=== PATIENT | female | born 1975 | race African-American/Black ===

== ENCOUNTER 2018-06-18 05:47 | Inpatient (IN) | payer BC ==
--- NOTE | 2018-06-17 22:39 | HP ---
DATE OF ADMISSION: 06/18/2018 REASON FOR ADMISSION: Velamentous cord insertion with unexplained elevated MSAFP at 37 weeks prior C -section x2, advanced maternal age. SCHEDULED PROCEDURE: Repeat section. HISTORY OF PRESENT ILLNESS: Ms. Clark is a 42-year-old 5, para 2, AB 2 at 37 weeks on 2017. She has been followed in early for a velamentous cord insertion as well as an abnorm al MSAFP with normal NIPT concerns are for elevated risk of unexplained loss at term associated with both velamentous insertion and MSAFP elevation and under recommendation of [facility], will proceed with at 37 weeks. 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 The patient's blood type is A positive. Her group B strep is negative. PAST MEDICAL HISTORY: Hypertension in . PAST SURGICAL HISTORY: , submandibular mass removal and D&C x2. SOCIAL HISTORY: Denies tobacco, alcohol, or IV drug abuse. 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 MEDICATIONS: vitamins. ALLERGIES: None. PHYSICAL EXAMINATION: GENERAL: Black female in no acute distress. VITAL SIGNS: Blood pressure 112/74, 142 pounds. HEENT: Within normal limits. LUNGS: Clear to auscultation bilaterally. HEART: Regular rhythm. BREASTS: Without mass bilaterally. ABDOMEN: Soft, nontender, no rebound or guarding. PELVIC: Vulva without lesions. Vagina without discharge. Cervix is closed, long, and high. EXTREMITIES: Without clubbing, cyanosis, or edema. IMPRESSION: Advanced maternal age, previous section x2, unexplained MSAFP elevation with ve lamentous cord insertion. PLAN: Repeat low transverse section at [facility] on 06/18/2018 with appropriate a ntibiotic and DVT prophylaxis.
[2018-06-18 06:37] VITALS: BMI 26.8
[2018-06-18] MEDS ORDERED: Lactated Ringer's 1,000 ML IV SCH ×3 (07:05→13:15)
[2018-06-18] MEDS ORDERED: Promethazine HCl 25 MG/ML VIAL IM PRN ×4 (07:05→13:49)
[2018-06-18] MEDS ORDERED: Bicitra 30 ML UDCUP PO SCH (07:05)
[2018-06-18] MEDS ORDERED: CEFAZOLIN/Water 2 GM/20 ML SYRINGE SLOW IVP SCH (07:05)
[2018-06-18] MEDS ORDERED: Ondansetron HCl/PF 4 MG/2 ML Vial IVP PRN ×5 (07:05→13:49)
[2018-06-18 07:12] LABS: Hemoglobin 13.5 g/dL (12.0-16.0); Mean Corpuscular HGB CONC 35.4 g/dL (32.0-36.0); Mean Corpuscular Hemoglobin 32.7 pg (27.0-31.0); Mean Corpuscular Volume 92.4 fL (78.0-98.0); Mean Platelet Volume 8.6 fL (7.4-10.4); Platelet Count 173 thou/uL (130-400); RBC Distribution Width 13.6 % (11.5-14.5); Red Blood Cell (RBC) Count 4.14 mill/uL (4.20-5.40); White Blood Cell (WBC) Count 4.9 thou/uL (4.8-10.8)
[2018-06-18 07:46] LABS: Hep B Surf Ag Non-Reactive S/CO (NonReactive); Syphilis Antibody Nonreactive (Nonreactive); Syphilis Antibody Index 0.06 S/CO (<1.00 Non-Reactive)
[2018-06-18] MEDS ORDERED: Oxytocin 10 UNITS/ML VIAL ONE (08:46)
[2018-06-18] MEDS ORDERED: Lidocaine 1% PF 5 ML VIAL ONE (08:46)
[2018-06-18] MEDS ORDERED: Morphine PF 1 MG/ML SYR ONE (08:46)
[2018-06-18] MEDS ORDERED: Bupivacaine 0.75% W/DEXTROSE 8.25% 2 ML AMP ONE (08:46)
[2018-06-18] MEDS ORDERED: Ondansetron HCl/PF 4 MG/2 ML Vial ONE ×2 (08:47→12:19)
[2018-06-18] MEDS ORDERED: Promethazine HCl 25 MG SUPP PR PRN ×2 (08:55→13:49)
[2018-06-18] MEDS ORDERED: Naloxone HCl 0.4 mg/ml Vial IV PRN ×4 (08:55→13:49)
[2018-06-18] MEDS ORDERED: Meperidine HCl/PF 25 MG/ML VIAL SLOW IVP PRN (08:55)
[2018-06-18] MEDS ORDERED: diphenhydrAMINE 50 MG/ML VIAL IVP PRN ×2 (08:55→13:49)
[2018-06-18] MEDS ORDERED: Naloxone HCl 0.4 mg/ml Vial IVP PRN ×2 (08:55)
[2018-06-18] MEDS ORDERED: HYDROmorphone 2 MG/ML VIAL SLOW IVP PRN (08:55)
[2018-06-18] MEDS ORDERED: Eucerin (Mineral Oil/Petrolatum,White) 30 gm Jar TOP PRN (08:55)
[2018-06-18] MEDS ORDERED: Ketorolac Tromethamine 30 MG/ML VIAL IVP PRN (08:55)
[2018-06-18] MEDS ORDERED: Communication Order-Pharmacy FS SCH (09:00)
[2018-06-18] MEDS ORDERED: Ketorolac Tromethamine 30 MG/ML VIAL IVP SCH (09:00)
[2018-06-18] MEDS ORDERED: PHENYLEPHRINE-NS 100 MCG/ML 10 ML SYRINGE ONE ×2 (09:09→12:19)
--- NOTE | 2018-06-18 09:48 | PDOC.OPDEL ---
OB Operative/Delivery Note Delivery Dr/Surgeon: Bruno Assist: Peter Pre-Delivery Diagnosis: scheduled section ( velamentous cord and elevated msafp at 37 wk) Procedure/Post Delivery Dx: repeat low transverse CS Weeks gestation: 37 Anesthesia: spinal - Findings A Sex: male Weight: 0 oz - 1 min: 7 - 5 min: 9 - Additional Findings/Plan Placenta delivered: spontaneous findings: low transverse hysterotomy without extension Estimated blood loss: 0 - qbl pending but seemed wnl Post delivery plan: routine recovery
--- NOTE | 2018-06-18 10:14 | OP ---
DATE OF PROCEDURE: 06/18/2018 PREOPERATIVE DIAGNOSES: 1. A 37 weeks gestation with velamentous cord insertion. 2. Previous section x2 and unexplained elevated MSAFP with Maternal Medicine recommen dation for delivery at 37-38 weeks' gestation. POSTOPERATIVE DIAGNOSES: 1. A 37 weeks gestation with velamentous cord insertion. 2. Previous section x2 and unexplained elevated MSAFP with Maternal Medicine recommen dation for delivery at 37-38 weeks' gestation. PROCEDURE: Repeat low transverse section without extension. SURGEON: Maynor Carr M.D. MOTOR POOL CLERK: Elisabet Green M.D. ANESTHESIA: Reed Lott, subarachnoid block. ESTIMATED BLOOD LOSS: Quantitative blood loss 340 mL. MEDICATIONS: Two grams Ancef preincision. DVT PROPHYLAXIS: SCDs. OPERATIVE FINDINGS: 1. Vigorous male , clear fluid, cephalic presentation 7 and 9 Apgars, weight pending to [facility]. 2. Normal appearing uterus, tubes and ovaries bilaterally. 3. Hemostasis with clear urine. 4. Counts correct at the end of the procedure. DISPOSITION: To the recovery room in good condition. DESCRIPTION OF OPERATIVE PROCEDURE: After obtaining proper consent, the patient was taken to the ope rating room where subarachnoid block was achieved without difficulty. The patient was prepped and dr yu in the usual manner. She had a previous vertical midline skin incision which the scar was excis ed and then carried down, the fascia was incised sharply superiorly and inferiorly. Peritoneum enter ed bluntly, taking care to avoid trauma to underlying viscera. Que O retractor placed inside. Ad hesions of the peritoneum to the lower uterine segment dissected off. The bladder noted to be well b elow the level of the hysterotomy. A low transverse hysterotomy made and extended superior and later ally with finger fractionization. Clear fluid noted. 's head elevated to the hysterotomy, del ivered, suctioned, cord clamped and cut and handed off to team in attendance. Usual cord bl ood sample obtained. Placenta delivered manually and sent for pathologic analysis. Gross appearance was consistent with a velamentous cord as diagnosed on ultrasound. Hysterotomy was inspected and no yesica be without extension, closed in a running locking #1 Monocryl suture. Good hemostasis noted. Al exis 0 retractor was removed. Rectus was inspected and noted to be dry. Fascia reapproximated using running continuous 0 PDS suture. Subcutaneous tissue irrigated and rendered hemostatic with Bovie c autery, reapproximated the skin using skin laura. Pressure dressing applied. The patient was take n to recovery room in good condition.
[2018-06-18] MEDS ORDERED: Ketorolac Tromethamine 30 MG/ML VIAL ONE (11:08)
[2018-06-18] MEDS ORDERED: NS / Oxytocin 40 units/1000ml 1,000 ML ONE (11:13)
[2018-06-18] MEDS ORDERED: NS / Oxytocin 40 units/1000ml 1,000 ML IV SCH (13:15)
[2018-06-18] MEDS ORDERED: Zolpidem Tartrate 5 MG TAB PO PRN (13:15)
[2018-06-18] MEDS ORDERED: Lanolin Ointment 7 GM TUBE TOP PRN (13:15)
[2018-06-18] MEDS ORDERED: Adacel (T-DAP) 0.5 ML VIAL IM ONE (13:15)
[2018-06-18] MEDS ORDERED: HYDROcodone/Acetaminophen 5/325 mg Tablet PO PRN ×2 (13:15)
[2018-06-18] MEDS ORDERED: Varicella virus, LIVE 0.5 ML VIAL SC ONE (13:15)
[2018-06-18] MEDS ORDERED: diphenhydrAMINE 25 MG CAP PO PRN (13:15)
[2018-06-18] MEDS ORDERED: Simethicone Chewable 80 MG TAB PO PRN (13:15)
[2018-06-18] MEDS ORDERED: Meperidine HCl/PF 25 MG/ML VIAL IM PRN (13:15)
[2018-06-18] MEDS ORDERED: Measles/Mumps/Rubella 10 MCG/0.5 ML VIAL SC ONE (13:15)
[2018-06-18] MEDS ORDERED: Hydrocerin (Eucerin) Cream 120 gm Jar TOP PRN (13:49)
[2018-06-18] MEDS ORDERED: NO PO,IM,IV OR SC NARCOTICS FOR 12HR EXCEPT BY ANESTHESIA PO SCH (14:00)
[2018-06-18] MEDS: Ibuprofen 800 MG TAB PO SCH (16:54)
[2018-06-18] MEDS: Ketorolac Tromethamine 30 MG/ML VIAL IVP PRN ×2 (17:40→19:32)
[2018-06-19] MEDS: Ibuprofen 800 MG TAB PO SCH ×4 (01:11→21:44)
[2018-06-19] MEDS: Ferrous Sulfate 325 MG TAB PO SCH ×3 (01:13→21:48)
[2018-06-19] MEDS ORDERED: Zolpidem Tartrate 5 MG TAB PO PRN (02:00)
[2018-06-19] MEDS ORDERED: Meperidine HCl/PF 25 MG/ML VIAL IM PRN (02:00)
[2018-06-19] MEDS ORDERED: HYDROcodone/Acetaminophen 5/325 mg Tablet PO PRN ×2 (02:00)
[2018-06-19] MEDS: Docusate Calcium (SURFAK) 240 MG CAP PO SCH ×3 (05:30→21:44)
[2018-06-19] MEDS: Ketorolac Tromethamine 30 MG/ML VIAL IVP PRN (05:34)
[2018-06-19 05:48] LABS: Hemoglobin 12.7 g/dL (12.0-16.0); Mean Corpuscular HGB CONC 34.5 g/dL (32.0-36.0); Mean Corpuscular Hemoglobin 32.5 pg (27.0-31.0); Mean Corpuscular Volume 94.2 fL (78.0-98.0); Mean Platelet Volume 8.8 fL (7.4-10.4); Platelet Count 144 thou/uL (130-400); RBC Distribution Width 13.5 % (11.5-14.5); Red Blood Cell (RBC) Count 3.92 mill/uL (4.20-5.40); White Blood Cell (WBC) Count 9.4 thou/uL (4.8-10.8)
--- NOTE | 2018-06-19 08:50 | PDOC.PP ---
Post Progress Note Post Day #: 1 PO intake tolerated: yes Flatus: yes Ambulation: yes Vital Signs (12 hours) Temp Pulse Resp BP 06/19/18 08:04 97.6 F 67 20 119/66 06/19/18 04:00 98.6 F 65 18 06/19/18 00:00 98.6 F 65 18 116/72 Weight Weight 142 lb - Physical Examination General: NAD Cardiovascular: no m/r/g, RRR Respiratory: clear to auscultation bilaterally, non-labored breathing Abdominal: + bowel sounds, lochia, no distention, appropriately TTP Skin: CS incision dry & intact, no rash Psychiatric: A&Ox3, normal affect Result Diagrams: 06/19/18 05:03 Additional Labs: Post Labs Blood Type A POSITIVE 06/18/18 06:30 Hep Bs Antigen Non-Reactive S/CO (NonReactive) 06/18/18 06:30 - Assessment/Plan Post op day 1-doing well. routine care.
[2018-06-19] MEDS: Prenatal Vitamin 1 TAB PO SCH (09:33)
[2018-06-20] MEDS: Ibuprofen 800 MG TAB PO SCH ×2 (05:23→13:59)
[2018-06-20] MEDS: Docusate Calcium (SURFAK) 240 MG CAP PO SCH (09:14)
[2018-06-20] MEDS: Prenatal Vitamin 1 TAB PO SCH (09:14)
[2018-06-20] MEDS: Ferrous Sulfate 325 MG TAB PO SCH (09:15)
--- NOTE | 2018-06-20 09:54 | PDOC.PP ---
Post Progress Note Post Day #: 2-3 PO intake tolerated: yes Flatus: yes Ambulation: yes Vital Signs (12 hours) Temp Pulse Resp BP 06/20/18 08:12 97.9 F 84 20 120/65 06/20/18 04:48 98.7 F 81 20 06/19/18 23:33 98.7 F 81 20 Weight Weight 142 lb - Physical Examination General: NAD Cardiovascular: no m/r/g, RRR Respiratory: clear to auscultation bilaterally, non-labored breathing Abdominal: + bowel sounds, lochia Extremities: negative homans (B) Skin: CS incision dry & intact, no rash Neurological: no gross focal deficits Psychiatric: A&Ox3, normal affect Result Diagrams: 06/19/18 05:03 Additional Labs: Post Labs Blood Type A POSITIVE 06/18/18 06:30 Hep Bs Antigen Non-Reactive S/CO (NonReactive) 06/18/18 06:30 - Assessment/Plan doing well dc home
[2018-06-20 11:23] VITALS: BP 112/59; TEMP 99.1
== END 2018-06-20 14:45 | disposition home or self-care (01) | DRG 766 ==
LOC: L&D 05:47 → 3SW 12:25
PROVIDERS: ADMIT Obstetrics & Gynecology; ATTEND Obstetrics & Gynecology
PROC: 10D00Z1 Extraction of Products of Conception, Low, Open Approach (ICD-10-PCS; principal; 2018-06-18)
DX: O43.123 Velamentous insertion of umbilical cord, third trimester (principal); O28.1 Abnormal biochemical finding on antenatal screening of mother; O34.211 Maternal care for low transverse scar from previous cesarean delivery; Z3A.37 37 weeks gestation of pregnancy; Z37.0 Single live birth
CPT/HCPCS: 36415; 51702; 85027; 86780; 86850; 86900; 86901; 87340; 88307; J1200; J1885; J2001; J2274; J2405; J2590; J3490